=== PATIENT | female | born 1955 | race Two or more races ===

== ENCOUNTER 2024-09-09 21:25 | Emergency (ER) | payer MEDICARE, MEDICAID, SELFPAY ==
[2024-09-09 21:30] VITALS: BP 136/54; PULSE 88; RESP 20; TEMP 37.1; O2SAT 100; BMI 24.3
[2024-09-09 21:34] VITALS: PULSE 88; O2SAT 100
[2024-09-09 23:07] LABS: Basophils % (Auto) 0 % (0-2.5); Eosinophils # (Auto) 0.2 Thou/mm3 (0.0-0.5); Eosinophils % (Auto) 3 % (0-10); Hemoglobin 12.3 g/dL (12.0-16.0); Immature Granulocytes % (Auto) 0 % (0-0); Immature Granulocytes Auto 0.03 Thou/mm3 (0.00-0.00); Lymphocytes # (Auto) 2.8 Thou/mm3 (1.0-4.8); Lymphocytes % (Auto) 35 % (10-50); Mean Corpuscular HGB Conc 34.2 g/dl (31.0-37.0); Mean Corpuscular Hemoglobin 30.2 pg (25.0-35.0); Mean Corpuscular Volume 89 fL (80-100); Monocytes # (Auto) 0.6 Thou/mm3 (0.0-0.8); Monocytes % (Auto) 7 % (0-12); Neutrophils # (Auto) 4.3 Thou/mm3 (1.8-7.7); Neutrophils % (Auto) 54 % (37-80); Nucleated Red Blood Cell % 0 /100 WBC (0); Platelet Count 206 Thou/mm3 (140-440); RDW Standard Deviation 42.7 fL (36.4-46.3); Red Blood Count 4.07 Miln/mm3 (4.00-5.20)
--- NOTE | 2024-09-09 23:23 | PD.EDCHEST ---
ED Chest Pain RME/HPI General Chief Complaint: Chest Pain Stated Complaint: CHEST PAIN Time Seen by Provider: 09/09/24 23:22 Source: EMS Arrival date/time: 09/09/24 21:25 Mode of arrival: EMS Limitations: no limitations RME / HPI RME / HPI narrative: DR. OZUNA?S MAIN ED EVALUATION: 69-year-old female with history of hypertension, high cholesterol, diabetes Presenting to the emergency department via EMS who is presenting for chief/stated complaint of midsternal chest pain, sudden onset, radiation to the back, that was present for 3 to 6 hours prior to arrival. Patient states the pain was 3 out of 10 prior to arrival. In emergency department 0 out of 10. The patient was given nitroglycerin, Nitropaste and symptoms resolved. Associated symptoms include no nausea vomiting or diarrhea. No syncope.. Patient denies blood loss or any other associated symptoms or medical complaints. Nonradiating, no chest pain at rest. Review of the record shows (). - PMH: Diabetes, high cholesterol, hypertension - PSH: - Social history: - Current medications: Reviewed PCP is Related Data Home Medications ?Medication ?Instructions ?Recorded ?Confirmed metformin 500 mg tablet 1,000 mg PO BID 08/23/17 11/26/22 atorvastatin 20 mg tablet 20 mg PO QDAY 03/12/20 11/26/22 aspirin 81 mg tablet 81 mg PO QDAY 11/26/22 11/26/22 dapagliflozin propanediol 10 mg 10 mg PO QDAY 11/26/22 11/26/22 tablet (Farxiga) pantoprazole 40 mg tablet,delayed 40 mg PO QDAY 11/26/22 11/26/22 release sennosides 8.6 mg-docusate sodium 1 tab-cap PO QDAY 11/26/22 11/26/22 50 mg tablet (Senexon-S) Previous Rx's ?Medication ?Instructions ?Recorded pantoprazole 20 mg tablet,delayed 20 mg PO QDAY #20 tabs 09/20/23 release (Protonix) Allergies Allergy/AdvReac Type Severity Reaction Status Date / Time No Known Allergies Allergy Verified 11/26/22 10:42 Review of Systems Review of Systems Systems Reviewed: All systems reviewed, normal except as documented Cardiovascular Cardiovascular: Reports chest pain Respiratory Respiratory: Reports as per HPI ED Exam Narrative Physical exam: GENERAL: In general the patient is awake, interactive, in an emergency department gurney. HEAD/EYES/EARS/NOSE/THROAT: normo-cephalic, atraumatic, mucus membranes are moist. No cervical tenderness palpation midline. Supple neck. CARDIOVASCULAR: regular rate and regular rhythm, no murmurs, heart sounds are not distant, strong pulses in all four extremities that are equal and symmetric bilateral upper and lower extremities, normal capillary refill. CHEST/PULMONARY: normal chest rise and fall, good air movement, clear to auscultation bilaterally, normal inspiratory to expiratory ratios without evidence of respiratory distress. ABDOMEN: soft, not tender, no masses appreciated BACK: normal range of motion without pain. NEUROLOGICAL: cranio-facial features are symmetric, moves all four extremities equally without obvious limitations or weakness. EXTREMITY: no tenderness to palpation over the long bones or large joints of the bilateral upper and lower extremities, SKIN: warm, dry, well-perfused, PSYCH: calm, cooperative, no evidence of psychosis or agitation General Limitations: Present no limitations Course Course Course Narrative: The electronic device monitor revealed sinus rhythum as interpreted by me. The electronic device monitor was ordered due to status and will be monitored for arrhythmia. Quality Measures none Orders Category Date Time Status Road Test Examiner STAT Care 09/09/24 22:46 Active Continuous Pulse Oximetry ONCE Care 09/09/24 22:46 Active EKG (ED ONLY) *Do not use* NOW Care 09/09/24 21:51 Completed CXRP [XR chest 1V portable] Stat Exams 09/09/24 23:36 Completed EKG (ED Only) Stat Exams 09/09/24 21:51 Ordered CBC Stat Lab 09/09/24 22:52 Completed Comprehensive Metabolic Panel Stat Lab 09/09/24 22:52 Completed Troponin I Stat Lab 09/09/24 22:52 Completed Troponin I Stat Lab 09/10/24 02:06 Completed Reevaluation(s) Reevaluation #1: Patient is pain-free. Time: 04:51 Vital Signs Vital signs: Vital Signs Temperature 98.8 F 09/09/24 21:30 Pulse Rate 88 09/09/24 21:30 Respiratory Rate 20 09/09/24 21:30 Blood Pressure 136/54 H 09/09/24 21:30 Pulse Oximetry (%) 100 09/09/24 21:30 Oxygen Delivery Method Room Air 09/09/24 21:30 Procedures -ED EKG Interpretation #1: Date of EK09/09/24 Time of EK:27 Rate: 79 Interpretation: Interpreted by me EKG Impression: Normal sinus rhythm, Alma deviation (Normal) and No acute ST-T changes Additional EKG comment: Noticed elevations of depressions. QTc is 435. Impression no ST ovation MN. Chest Pain MDM Narrative MDM Narrative:: 69 year-old female with a history of diabetes, high cholesterol, GERD, presents with chest pain. No shortness of breath, palpitations, or syncope, Given the patient?s age, cardiac risk factors factors, and symptom of chest pain the likelihood acute coronary syndrome is considered low to moderate. Initial workup includes EKG, troponin, CXR, labs to evaluate for cardiac pathology. Vitals will be monitored and symptoms reassessed. Troponin x 2. Disposition will depend on DDX: Cardiac disease, MN, pneumonia, GERD, noncardiac etiology. EDC: Safety net established and ECG retrieved showing no evidence of STEMI or significant ST depressions, q waves, or T wave inversion. Aspirin given. Unclear cause for pain, but doubt pulmonary embolism as the patient has no risk factors and has normal vital signs with an unremarkable ECG and chest X-ray. Doubt cardiac disease as pain greater than 12 hours with negative labs, ECG, and imaging. Doubt Aortic dissection as pain not tearing in nature, not maximal at onset, and non migratory. Planned close follow up with PCP. Vital signs remained stable throughout the emergency department course. The patient was given strict return precautions and was comfortable with the plan. Patient data External records reviewed:: [facility] previous records Clinical information provided by:: patient and family Social determinants that could affect healthcare access:: none Patient has the following chronic illnesses:: Hypertension, diabetes, high cholesterol How is presenting disease/condition affected by chronic disease/condition?: uneffected by Evaluation data The following diagnostics were reviewed and interpreted by me:: lab results, radiology exam(s) and EKG tracing(s) Lab and/or radiology exams considered but not ordered:: None Interpretation Summary: White count is 8 and normal. Hemoglobin is 12 and normal. Platelets are normal. Creatinine is 1.3. Glucose is 210 slightly elevated. LFTs are normal. AP portable upright chest single view FINDINGS: Normal heart size The lungs are clear. Moderate osteopenia IMPRESSION: No active disease Medications / Prescriptions Medications or Prescriptions considered but not ordered:: None Medication administrations:: See chart Consultations Consultation(s) initiated? (list below): No Diagnosis Chest Pain Differential Diagnosis: stable angina, unstable angina pectoris, atypical chest pain, costochondritis, chest pain and other (Pneumonia) Most likely diagnosis given after review of the tests above:: Atypical chest pain Admission Indicated Admission indicated?: not indicated Admission Request Was there a request for admission?: No Disposition Plan Disposition Plan: Discharge Discharge Attestation Discharge Attestation: The patient and all family members were given an opportunity to ask questions and understood the discharge instructions. Discharge instructions specifically effects, indications for sooner follow up or return to the emergency department, and the expected course of current diagnosis. Patient condition: Stable Discharge Plan Plan Patient Disposition: HOME (Self Care) Patient condition on transfer: Stable Prescriptions/Referrals Prescriptions/Med Rec: No Action atorvastatin 20 mg tablet 20 mg PO QDAY metformin 500 mg Tablet 1,000 mg PO BID sennosides-docusate sodium [Senexon-S] 8.6-50 mg Tablet 1 tab-cap PO QDAY pantoprazole 40 mg Tablet,Delayed Release (Dr/Ec) 40 mg PO QDAY aspirin 81 mg Tablet 81 mg PO QDAY Farxiga 10 mg Tablet 10 mg PO QDAY pantoprazole [Protonix] 20 mg tablet,delayed release (DR/EC) 20 mg PO QDAY Qty: 20 0RF Referrals: Christi Ghosh PA-C [Primary Care Provider] - In 1 week Problem List Clinical Impression: Atypical chest pain Patient/Caregiver Discharge Instructions Education Materials: ED Chest Pain, Noncardiac Additional Instructions: Usted arriaga sido dado de roberto del Departamento de Emergencias sin embargo hay algunas cosas que debe hacer para asegurarse de que usted continue recibiendo el cuidado adecuado. Por favor funmilayo las siguientes instrucciones con atenci?n: ? 1. Si es que le dieron alguna prescripci?n (medicamento), asegurese de ir a la farmacia de feldman preferencia, llenar el medicamento y tomarlo conforme a las instrucciones. ? 2. Leas las instrucciones de roberto con mucho cuidado dado que contienen informaci?n importante para feldman jose manuel y cuidado. 3. REGRESE AL DEPARTAMENTO DE EMERGENCIA SI tiene alg?n tipo de problema o preocupaci?n. Biddle incluye lois no esta limitado a fiebre, mucho dolor abdominal, dolor de pecho, mucho dolor de meghan, falta de aire, sangrado incontrolable, nauseas o vomitos incontrolables, inhabilidad de tolerar alimentos, o cualquier otro tipo de condici?n que le al cuestionar feldman jose manuel. 4. Asegurese de seguir con feldman medico primario (tambien llamado medico de hardik) o con el medico especialista que le indicaron al momento del roberto en 3 a 5 garnett dado que esta es la mejor manera de asegurar que sally recibiendo el mejor cuidado medico. ? 5. Si es que tiene un telefono inteligente (smartphone) revise la pagina web o aplicaci?n GoodRx antes de pagar por kaitlin prescripciones (medicinas) dado que asi podr?a encontrar un cup?n para que kaitlin medicinas tess menos costosas. El servicio es gratuito. ? Le agradecemos feldman visita el scott de hoy y esperamos que feldman jose manuel mejore. Print Language: Amharic Stand Alone Forms: Nell Award Info., Patient Portal Info Letter
[2024-09-09 23:25] LABS: Alanine Aminotransferase 15 U/L (10-49); Albumin, Serum 4.2 gm/dL (3.4-4.8); Albumin/Globulin Ratio 1.4 (1.2-2.2); Alkaline Phosphatase 71 U/L (46-116); Anion Gap 9 (7-16); Aspartate Amino Transferase 20 U/L (0-34); BUN/Creatinine Ratio 18 Ratio (12-20); Bilirubin,Total 0.4 mg/dL (0.3-1.2); Blood Urea Nitrogen 24 mg/dL (9-23); Calcium 9.4 mg/dL (8.3-10.6); Calcium (Corrected) 9.4 mg/dL (8.5-10.1); Carbon Dioxide 22.2 mMol/L (20.0-31.0); Chloride 110 mMol/L (98-107); Creatinine (Component) 1.3 mg/dL (0.6-1.3); Estimated Creatinine Clearance 33.3 mL/min (>60); Globulin 2.9 gm/dL (2.3-3.5); Glucose 210 mg/dL (74-106); Osmolality,Calculated 291 (275-295); Sodium 141 mMol/L (136-145); Total Protein 7.1 gm/dL (5.7-8.2); Troponin I < 0.020 ng/mL (0.0-0.045); eGFR 44 See Note
--- NOTE | 2024-09-09 23:36 | XR_ITS ---
Examination: AP chest single view TECHNIQUE: AP portable upright chest single view Standing time: September 09, 2024 11:47 PM Comparison February 05, 2021 INDICATIONS: Chest pain today. FINDINGS: Normal heart size The lungs are clear. Moderate osteopenia IMPRESSION: No active disease
[2024-09-10 00:54] VITALS: BP 122/60; PULSE 76; RESP 19; TEMP 36.4; O2SAT 97
[2024-09-10 02:31] LABS: Troponin I < 0.020 ng/mL (0.0-0.045)
[2024-09-10 04:09] VITALS: BP 118/50; PULSE 69; RESP 16; TEMP 36.7; O2SAT 97
== END 2024-09-10 05:13 | disposition home or self-care (01) ==
PROVIDERS: Emergency Provider Emergency Medicine; PCP Physician Assistant
DX: R07.89 Other chest pain (principal); I10 Essential (primary) hypertension; E78.00 Pure hypercholesterolemia, unspecified
CPT/HCPCS: 36415; 71045; 80053; 84484; 85025; 93005; 99283

== ENCOUNTER → 2024-09-18 | Outpatient (CLI) | payer MEDICARE, MEDICAID, SELFPAY ==
--- NOTE | 2024-09-18 08:30 | XR_ITS ---
Examination: Screening digital mammography, bilateral Computer aided detection 3-D breast Tomosynthesis, bilateral Date and time of exam: September 18, 2024 0811 hours Compared to mammograms dating to September 18, 2014 Indication: Screening Technique: Nonmagnified MLO, CC views of the breasts to been obtained, reconstructed from 3-D Tomosynthesis images. R2 computer aided detection program utilized for evaluation of suspicious masses and/or abnormal calcifications. 3-D Tomosynthesis images obtained. Findings: Scattered areas of probable glandular density. Benign calcifications. No interval suspicious masses Impression: BI-RADS category II: Benign Findings. Recommend 1 year follow-up mammogram.
== END | disposition home or self-care (01) ==
LOC: CDIM 07:41
PROVIDERS: Referring Provider Physician Assistant; Visit Provider Physician Assistant
DX: Z12.31 Encounter for screening mammogram for malignant neoplasm of breast (principal); R92.323 Mammographic fibroglandular density, bilateral breasts; R92.1 Mammographic calcification found on diagnostic imaging of breast
CPT/HCPCS: 77063; 77067

== ENCOUNTER 2024-10-05 05:11 | Emergency (ER) | payer MEDICARE, MEDICAID, SELFPAY ==
[2024-10-05 05:16] VITALS: BP 117/74; PULSE 111; PULSE 113; RESP 16; RESP 18; TEMP 36.8; O2SAT 97; O2SAT 99; BMI 29.2
--- NOTE | 2024-10-05 06:34 | XR_ITS ---
Examination: CT abdomen and pelvis without contrast. Coronal 3-D reconstructions. Sagittal 2-D reconstructions. Date and time of exam:October 12, 2024 0840 hours INDICATIONS: Abdominal pain with sudden onset diarrhea today CTDI: vol (mGy): 7.91 DLP: (mGycm): 415 Technique: Axial images of the abdomen have been obtained, 3 mm slice thickness Intravenous contrast material has not been administered. Low dose protocols were performed. One or more of the following dose reduction techniques were used; automated exposure control, adjustment of the mA and/or KV according to patient size, use of iterative reconstruction technique. Findings: No focal liver or splenic lesions No gallstones No pancreatic or adrenal mass No renal or ureteral calculi, no hydronephrosis Aorta normal size No bowel obstruction Normal appendix No diverticulitis Retroverted atrophic uterus No adnexal mass Contracted urinary bladder No nonspecific colitis pattern however this is a noncontrast study IMPRESSION: No renal or ureteral calculi, no hydronephrosis Normal appendix No bowel obstruction No nonspecific colitis pattern, however this is a noncontrast study
--- NOTE | 2024-10-05 06:34 | PD.EDRME ---
Rapid Medical Screening Exam RME Arrival date/time: 10/05/24 05:11 69-year-old female with a history of type 2 diabetes presents to the emergency room with a chief complaint of 8 out of 10 diffuse abdominal pain, vomiting, diarrhea x 4 days I have greeted and performed a focused initial assessment of this patient. A comprehensive ED assessment and evaluation of the patient, analysis of all test results, and completion of the medical decision making process will be conducted by additional ED providers. Chief Complaint: Abdominal Pain Time Seen by Provider: 10/05/24 06:16 Vital signs: Vital Signs Temperature 98.2 F 10/05/24 05:16 Pulse Rate 111 H 10/05/24 05:16 Respiratory Rate 18 10/05/24 05:16 Blood Pressure 117/74 10/05/24 05:16 Pulse Oximetry (%) 99 10/05/24 05:16 Oxygen Delivery Method Room Air 10/05/24 05:16 Vital signs reviewed by provider: Yes
[2024-10-05] MEDS: ONDANSETRON ODT 4 MG TABRAP PO (07:50)
[2024-10-05 07:58] LABS: Basophils % (Auto) 0 % (0-2.5); Eosinophils # (Auto) 0.4 Thou/mm3 (0.0-0.5); Eosinophils % (Auto) 5 % (0-10); Hematocrit 39.1 % (36.0-46.0); Hemoglobin 13.9 g/dL (12.0-16.0); Immature Granulocytes % (Auto) 0 % (0-0); Immature Granulocytes Auto 0.03 Thou/mm3 (0.00-0.00); Lymphocytes # (Auto) 1.8 Thou/mm3 (1.0-4.8); Lymphocytes % (Auto) 23 % (10-50); Mean Corpuscular HGB Conc 35.5 g/dl (31.0-37.0); Mean Corpuscular Hemoglobin 30.1 pg (25.0-35.0); Mean Corpuscular Volume 85 fL (80-100); Monocytes # (Auto) 0.5 Thou/mm3 (0.0-0.8); Monocytes % (Auto) 6 % (0-12); Neutrophils # (Auto) 5.2 Thou/mm3 (1.8-7.7); Neutrophils % (Auto) 65 % (37-80); Nucleated Red Blood Cell % 0 /100 WBC (0); Platelet Count 213 Thou/mm3 (140-440); RDW Standard Deviation 40.2 fL (36.4-46.3); Red Blood Count 4.62 Miln/mm3 (4.00-5.20); White Blood Count 7.9 Thou/mm3 (3.6-11.0)
[2024-10-05 08:14] VITALS: BP 125/58; PULSE 100; RESP 16; TEMP 36.7; O2SAT 99
[2024-10-05 08:21] LABS: Alanine Aminotransferase 16 U/L (10-49); Albumin, Serum 4.9 gm/dL (3.4-4.8); Albumin/Globulin Ratio 1.4 (1.2-2.2); Alkaline Phosphatase 73 U/L (46-116); Anion Gap 11 (7-16); Aspartate Amino Transferase 24 U/L (0-34); BUN/Creatinine Ratio 15 Ratio (12-20); Bilirubin,Total 0.6 mg/dL (0.3-1.2); Blood Urea Nitrogen 22 mg/dL (9-23); Calcium 9.8 mg/dL (8.3-10.6); Calcium (Corrected) 9.8 mg/dL (8.5-10.1); Carbon Dioxide 19.9 mMol/L (20.0-31.0); Chloride 109 mMol/L (98-107); Creatinine (Component) 1.5 mg/dL (0.6-1.3); Globulin 3.4 gm/dL (2.3-3.5); Glucose 174 mg/dL (74-106); Lipase 35 U/L (12-53); Osmolality,Calculated 286 (275-295); Potassium 4.2 mMol/L (3.4-5.1); Sodium 140 mMol/L (136-145); Total Protein 8.3 gm/dL (5.7-8.2); eGFR 37 See Note
[2024-10-05 08:49] VITALS: BP 117/50; PULSE 70; RESP 15; TEMP 36.4; O2SAT 100; BMI 23.6
--- NOTE | 2024-10-05 08:59 | EKG_ITS ---
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
[2024-10-05 09:19] VITALS: PULSE 66
[2024-10-05] MEDS: SODIUM CHLORIDE 0.9% 1000 ML 1,000 ML 999 ML IV (09:22)
[2024-10-05] MEDS: PANTOPRAZOLE INJ 40 MG VIAL IVP (09:22)
[2024-10-05] MEDS: ONDANSETRON INJ 2 MG/ML INJ 2 ML 4 MG IVP (09:23)
[2024-10-05] MEDS: MORPHINE SULF INJ 10 MG/ML VIAL 2 MG IVP (09:25)
[2024-10-05 09:35] LABS: Prothrombin Time 10.9 Seconds (9.0-12.2)
[2024-10-05 09:43] LABS: Collection Type, Urine Clean Catch
[2024-10-05 10:00] VITALS: BP 116/43; PULSE 80; RESP 20; TEMP 36.6; O2SAT 96
[2024-10-05 10:06] LABS: Bacteria,Urine Rare; Bilirubin,Urine Negative (Negative); Blood,Urine 1+ (Negative); Clarity,Urine Clear (Clear/Hazy); Color,Urine Lt-Yellow (Lt Yel-Yel); Glucose, Urine Negative (Negative); Hyaline Casts,Urine < 1 /hpf (0-1); Ketones,Urine Negative (Negative); Leukocyte Esterase,Urine Negative (Negative); Nitrite,Urine Negative (Negative); Protein,Urine Trace (Neg - Trace); RBC,Urine 1 /hpf (0-3); Specific Gravity,Urine 1.015 (1.001-1.035); Squamous Epithelial Cell,Urine 5 /hpf (0-5); Urobilinogen,Urine Negative mg/dL (0.0-1.0); WBC,Urine 2 /hpf (0-5)
--- NOTE | 2024-10-05 11:14 | PD.EDABDPN ---
ED Abdominal Pain RME/HPI General Chief Complaint: Abdominal Pain Stated complaint: N/V/D Time seen by provider: 10/05/24 06:16 Arrival date/time: 10/05/24 05:11 Limitations: no limitations RME / HPI RME / HPI narrative: 10/05/24 05:11 69-year-old female with a history of type 2 diabetes presents to the emergency room with a chief complaint of 8 out of 10 diffuse abdominal pain, vomiting, diarrhea x 4 days I have greeted and performed a focused initial assessment of this patient. A comprehensive ED assessment and evaluation of the patient, analysis of all test results, and completion of the medical decision making process will be conducted by additional ED providers. DR. MENDOZA MAIN ED EVALUATION: 69 year old female with hypertension, diabetes, hyperlipidemia, GERD, gastric ulcers presents to the ED for evaluation of abdominal pain beginning 3 days ago. Pain described as aching in sensation that is located throughout abdomen but most severe over epigastric region. Rating as moderate in severity. Accompanied by nausea, nonbloody vomiting, and yellow-colored diarrhea. Additionally reported subjective fevers yesterday but none today. No known modifying factors reported. Denies any chest pain, cough, shortness of breath, or urinary symptoms. Related Data Home Medications ?Medication ?Instructions ?Recorded ?Confirmed metformin 500 mg tablet 1,000 mg PO BID 08/23/17 11/26/22 atorvastatin 20 mg tablet 20 mg PO QDAY 03/12/20 11/26/22 aspirin 81 mg tablet 81 mg PO QDAY 11/26/22 11/26/22 dapagliflozin propanediol 10 mg 10 mg PO QDAY 11/26/22 11/26/22 tablet (Farxiga) pantoprazole 40 mg tablet,delayed 40 mg PO QDAY 11/26/22 11/26/22 release sennosides 8.6 mg-docusate sodium 1 tab-cap PO QDAY 11/26/22 11/26/22 50 mg tablet (Senexon-S) Previous Rx's ?Medication ?Instructions ?Recorded pantoprazole 20 mg tablet,delayed 20 mg PO QDAY #20 tabs 09/20/23 release (Protonix) Allergies Allergy/AdvReac Type Severity Reaction Status Date / Time No Known Allergies Allergy Verified 10/05/24 05:16 Review of Systems Review of Systems Narrative Review of Systems: GEN: + subjective fevers yesterday, no chills, no weight loss EYES: No discharge, no visual changes, no pain HEENT: No ear pain, no congestion, no sore throat PULM: No shortness of breath, no cough, no congestion CV: No chest pain, no dyspnea on exertion, no palpitations GI: + nausea, +vomiting, + diarrhea, +pain, no constipation : No frequency, no urgency, no dysuria MUSC/SKEL: No joint pain, no back pain SKIN: No rash NEURO: No weakness, no headache Past Medical History Past Medical History NEUROLOGIC: Positive Migraine CARDIAC: Positive Hypercholesterolemia and Hypertension RESPIRATORY: Positive Asthma GASTROINTESTINAL: Positive Gastrointestinal Disorders, Ulcerative Colitis, Ulcer and Gastroesophageal Reflux Disease REPRODUCTIVE: Positive Previous Pregnancies MUSCULOSKELETAL: Positive Musculoskeletal Disorders and Arthritis ENDOCRINE: Positive Endocrine Disorders and Diabetes Mellitus Type 2 OTHER HISTORY: Positive Chicken Pox Surgical History SURGICAL: Positive Arthroscopy and Tubal Ligation Social History SMOKING STATUS: Never smoker ED Exam General Limitations: Present no limitations General appearance: Present alert and in no apparent distress Head Head exam: Present atraumatic, normocephalic and normal inspection Eye Eye exam: Present normal appearance, PERRL and EOMI ENT ENT exam: Present normal exam, normal oropharynx and mucous membranes dry Neck Neck exam: Present normal inspection, full ROM and trachea midline Chest Chest inspection: Present normal inspection and symmetric chest wall rise Respiratory Respiratory exam: Present normal lung sounds bilaterally Cardiovascular Cardiovascular exam: Present regular rate, normal rhythm, normal heart sounds and other (distant heart sounds) Abdominal Exam Abdominal exam: Present soft, normal bowel sounds and other (hypoactive and sonorous bowel sounds over upper abdomen. 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 Care 10/05/24 09:00 Active EKG (ED ONLY) *Do not use* NOW Care 10/05/24 08:59 Completed Insert IV STAT Care 10/05/24 08:59 Active NPO STAT Care 10/05/24 08:[address] abdomen pelvis wo con Stat Exams 10/05/24 06:34 Completed EKG (ED Only) Stat Exams 10/05/24 08:59 Draft CBC Stat Lab 10/05/24 07:30 Completed CMP [Comprehensive Metabolic Panel] Stat Lab 10/05/24 07:30 Completed Lipase Stat Lab 10/05/24 07:30 Completed Prothrombin Time with INR Stat Lab 10/05/24 07:30 Completed Stool for WBCs Stat Lab 10/05/24 09:03 Ordered UA [Urinalysis] Stat Lab 10/05/24 09:34 Completed Urine Culture Stat Lab 10/05/24 09:34 Received Morphine Inj Med 10/05/24 09:00 Discontinued 2 mg IVP X1 ONE Ondansetron Inj [Zofran Inj] Med 10/05/24 08:59 Active 4 mg IVP Q1H PRN Ondansetron Odt [Zofran Odt] Med 10/05/24 06:34 Discontinued 4 mg PO X1 ONE Pantoprazole Inj [Protonix Inj] Med 10/05/24 08:59 Discontinued 40 mg IVP X1 ONE Sodium Chloride 0.9% 1000 ml [Ns] 1,000 ml Med 10/05/24 08:59 Discontinued IV 999 mls/hr Vital Signs Vital signs: Vital Signs Temperature 98.2 F 10/05/24 05:16 Pulse Rate 111 H 10/05/24 05:16 Respiratory Rate 18 10/05/24 05:16 Blood Pressure 117/74 10/05/24 05:16 Pulse Oximetry (%) 99 10/05/24 05:16 Oxygen Delivery Method Room Air 10/05/24 05:16 Pulse ox is 99% on room air which is adequate. Abdominal Pain MDM MDM Narrative MDM Narrative:: Lupe Lorenzo am scribing for and in the presence of Dr. Mendoza. 69 year old female with a significant medical history including hypertension, diabetes mellitus, hyperlipidemia, GERD, and gastric ulcers, who presents with 3 days of abdominal pain. The pain is diffuse but most prominent in the epigastric region, described as aching and moderate in severity. Associated symptoms include nausea, nonbloody vomiting, yellow-colored diarrhea, and a subjective fever reported yesterday but resolved today. She denies chest pain, respiratory, or urinary symptoms. Given her history of gastric ulcers and GERD, there was initial concern for potential peptic ulcer disease complications. However, absence of melena, hematemesis, or peritoneal signs lowers this suspicion. Yellow diarrhea and associated symptoms raise concern for infectious gastroenteritis, which aligns with her clinical presentation and symptom course. Labs and imaging, ruled out alternative serious intra-abdominal pathology. CT showed nonspecific colitis pattern. Based on the clinical presentation and lack of alarming features on exam or workup, a diagnosis of acute gastroenteritis was made. Patient is hemodynamically stable and tolerating oral intake. Supportive care with antiemetics, hydration, and dietary modification recommended. Will monitor for any worsening or red flag symptoms such as persistent high fever, bloody stools, or signs of dehydration. Patient data External records reviewed:: [facility] previous records (I reviewed ED visit on 09/09/2024 ) Clinical information provided by:: patient Social determinants that could affect healthcare access:: none Patient has the following chronic illnesses:: HTN, DM, HLD, GERD, gastric ulcers How is presenting disease/condition affected by chronic disease/condition?: exacerbated by Evaluation data The following diagnostics were reviewed and interpreted by me:: lab results, radiology exam(s) and EKG tracing(s) (EKG @ 09:34 AM. Sinus rhythm, rate 69, NC int 195ms, QRS dur 94 ms, QT/QTc 438/458 ms, no STEMI. ) Lab and/or radiology exams considered but not ordered:: None Interpretation Summary: Ordering Physician: Gurpreet Toure Date of Service: 10/05/24 Procedure(s): CT abdomen pelvis wo [facility] Accession Number(s): [id number] cc: Christi Ghosh; Gurpreet Toure; Joseph Clifford MD~ Examination: CT abdomen and pelvis without contrast. Coronal 3-D reconstructions. Sagittal 2-D reconstructions. Date and time of exam:October 12, 2024 0840 hours INDICATIONS: Abdominal pain with sudden onset diarrhea today CTDI: vol (mGy): 7.91 DLP: (mGycm): 415 Technique: Axial images of the abdomen have been obtained, 3 mm slice thickness Intravenous contrast material has not been administered. Low dose protocols were performed. One or more of the following dose reduction techniques were used; automated exposure control, adjustment of the mA and/or KV according to patient size, use of iterative reconstruction technique. Findings: No focal liver or splenic lesions No gallstones No pancreatic or adrenal mass No renal or ureteral calculi, no hydronephrosis Aorta normal size No bowel obstruction Normal appendix No diverticulitis Retroverted atrophic uterus No adnexal mass Contracted urinary bladder No nonspecific colitis pattern however this is a noncontrast study IMPRESSION: No renal or ureteral calculi, no hydronephrosis Normal appendix No bowel obstruction No nonspecific colitis pattern, however this is a noncontrast study Dictated By: Joseph Clifford MD Signed By: <Electronically signed by Joseph Clifford MD in OV> 10/05/24 0929 Medications / Prescriptions Medications or Prescriptions considered but not ordered:: None Medication administrations:: Medication Administration History Ondansetron HCl (Ondansetron Inj 2 Mg/Ml Inj 2 Ml) 4 mg IVP Q1H PRN PRN Reason: PERSISTENT NAUSEA OR VOMITING Last Admin: 10/05/24 09:23 Dose: 4 mg Documented By: DB Discontinued Medications Sodium Chloride (Ns) 1,000 mls @ 999 mls/hr IV .Q1H1M ONE Stop: 10/05/24 09:59 Last Infusion: 10/05/24 10:36 Dose: Infused Documented By: Admin: 10/05/24 09:22 Dose: 999 mls/hr Documented By: DB Morphine Sulfate (Morphine Sulf Inj 10 Mg/Ml Vial) 2 mg IVP X1 ONE Stop: 10/05/24 09:01 Last Admin: 10/05/24 09:25 Dose: 2 mg Documented By: DEXTER Ondansetron HCl (Ondansetron Odt 4 Mg Tabrap) 4 mg PO X1 ONE; Protocol Stop: 10/05/24 06:35 Last Admin: 10/05/24 07:50 Dose: 4 mg Documented By: JONATHON Pantoprazole Sodium (Pantoprazole Inj 40 Mg Vial) 40 mg IVP X1 ONE Stop: 10/05/24 09:00 Last Admin: 10/05/24 09:22 Dose: 40 mg Documented By: DEXTER See above Consultations Consultation(s) initiated? (list below): No Diagnosis Differential diagnosis abdominal pain: abdominal pain, calculus of kidney, constipation, diverticulitis, gastroenteritis and small bowel obstruction Most likely diagnosis given after review of the tests above:: Acute gastroenteritis Admission Indicated Admission indicated?: not indicated Admission Request Was there a request for admission?: No Disposition Plan Disposition Plan: Discharge Discharge Attestation Discharge Attestation: The patient and all family members were given an opportunity to ask questions and understood the discharge instructions. Discharge instructions specifically effects, indications for sooner follow up or return to the emergency department, and the expected course of current diagnosis. Patient condition: Stable Discharge Plan Plan Patient Disposition: HOME (Self Care) Prescriptions/Referrals Prescriptions/Med Rec: No Action atorvastatin 20 mg tablet 20 mg PO QDAY metformin 500 mg Tablet 1,000 mg PO BID sennosides-docusate sodium [Senexon-S] 8.6-50 mg Tablet 1 tab-cap PO QDAY pantoprazole 40 mg Tablet,Delayed Release (Dr/Ec) 40 mg PO QDAY aspirin 81 mg Tablet 81 mg PO QDAY Farxiga 10 mg Tablet 10 mg PO QDAY pantoprazole [Protonix] 20 mg tablet,delayed release (DR/EC) 20 mg PO QDAY Qty: 20 0RF Referrals: Christi Ghosh PA-C [Primary Care Provider] - In 1 week Problem List Clinical Impression: Acute gastroenteritis Patient/Caregiver Discharge Instructions Education Materials: ED Gastroenteritis, Noninfectious Additional Instructions: Follow-up with your primary care doctor in 1 day for recheck and consider GI referral. You can return to the emergency department sooner if symptoms worsen or if you notice any new, concerning issues. Drink plenty of fluids. Print Language: Mosotho Stand Alone Forms: Nell Award Info., Patient Portal Info Letter
[2024-10-05 11:25] VITALS: BP 103/52; PULSE 73; RESP 16; TEMP 36.7; O2SAT 100
== END 2024-10-05 11:26 | disposition home or self-care (01) ==
PROVIDERS: Nurse Practitioner Family; Emergency Provider Family Medicine; PCP Physician Assistant
DX: K52.9 Noninfective gastroenteritis and colitis, unspecified (principal); I10 Essential (primary) hypertension; E78.00 Pure hypercholesterolemia, unspecified
CPT/HCPCS: 36415; 74176; 80053; 81001; 83690; 85025; 85610; 87077; 87086; 87186; 87205; 93005; 96361; 96374; 96375; 99284; J2270; J2405; J2470; J7030; Q0162